=== PATIENT | female | born 1955 | race Caucasian/White ===

== ENCOUNTER 2017-04-06 06:21 | Day surgery (SDC) | payer BC ==
[~2017-04-06 06:21] MED LIST: ACETAMINOPHEN 1,000 MG/100 ML BTL IV ONE
[2017-04-06 06:48] LABS: BASO % 0.9 % (0-6); EOS % 4.3 % (0-6); GRAN % 44.4 % (47-80); HEMOGLOBIN 13.8 gm/dl (11.6-16.0); LYMPH % 36.2 % (16-45); MEAN CELL VOLUME 89.7 fl (81-97); MEAN CORPUSCULAR HEMOGLOBIN 30.2 pg (27-33); MEAN CORPUSCULAR HGB CONC 33.7 g/dl (32-36); MONO % 14.2 % (0-9); PLATELET COUNT 305 K/uL (130-400); RED BLOOD COUNT 4.57 M/uL (3.80-5.40); RED CELL DISTRIBUTION WIDTH 12.9 % (11.5-14.5); WHITE BLOOD COUNT W/O DIFF 5.6 K/uL (4.2-12.2)
[2017-04-06] MEDS ORDERED: BUPIVACAINE 0.25% W/EPI MPF 30ML VIAL IVP ONE (14:24)
[2017-04-06] MEDS ORDERED: PROPOFOL 10 MG/ML VIAL IV ONE (14:28)
[2017-04-06] MEDS ORDERED: LIDOCAINE 2% MDV (20MG/ML) 20ML VIAL IV ONE (14:28)
[2017-04-06] MEDS ORDERED: ALFENTANIL HCL 500 MCG/1ML, 2ML AMP IV ONE (14:28)
[2017-04-06] MEDS ORDERED: HYDROMORPHONE HCL 2 MG/ML VIAL IV ONE (14:28)
[2017-04-06] MEDS ORDERED: KETOROLAC 30 MG/ML VIAL IVP ONE (14:28)
--- NOTE | 2017-04-11 14:10 | Operative Note ---
DATE OF SURGERY: 04/06/2017 Surgeon: Lazarus Ly DO PREOPERATIVE DIAGNOSES: 1. Torn medial meniscus of the right knee. 2. Chondromalacia of the right knee. POSTOPERATIVE DIAGNOSES: 1. Chondromalacia of the medial femoral condyle, lateral tibial plateau, and patella of right knee. 2. Meniscal cyst of medial meniscus, right knee. OPERATION: 1. Arthroscopic chondroplasty of medial femoral condyle, lateral tibial plateau, and patella or right knee. 2. Arthroscopic synovectomy and removal of medial meniscal cyst, right knee. DESCRIPTION OF PROCEDURE: This 61-year-old female was taken to the operating room, placed in the supine position on the operating room table. A general anesthetic was administered and the right lower extremity was elevated. It was exsanguinated and the tourniquet inflated to 300 mmHg. The arthroscopic knee ling applied. It was prepped with Hibiclens and draped in the usual sterile fashion. An inferior lateral portal was established for the 4 mm arthroscope. Initial evaluation of the joint demonstrated normal appearance of the suprapatellar pouch but severe grade 3 chondromalacia of the entire articular surface of the patella was present with loose fragments of articular cartilage being identified. Through an inferomedial portion, chondroplasty was performed to stabilize the articular cartilage there. The trochlea, however, appeared to be normal. The medial and lateral gutters were examined and found to be normal. The medial compartment was entered and an area of grade 2 chondromalacia on the lateral edge of the medial femoral condyle, approximately 50% of the articular surface, demonstrated grade 2 changes. The lesion was approximately 2-3 cm in greatest dimension. The articular surface of the tibia appeared to be relatively spared at that point. Posteriorly we could visualize a meniscal cyst which was about 0.5 to 0.75 cm in diameter, and this cyst was probed and it was overlying the root of the medial meniscus. We debrided the cyst with a rotating shaver to remove it and probed the root of the meniscus and did not find any evidence of a tear there. We probed the remaining portion of the posterior horn and body of the medial meniscus and the anterior horn did not reveal any evidence of any damage to the medial meniscus. Chondroplasty of the medial femoral condyle was performed. The intracondylar notch was examined and found to be normal. The lateral compartment was entered and advanced grade 3 changes of the lateral tibial plateau were present with very severe articular cartilage loss which was a lesion which was approximately 1.5 to 2 cm wide but mostly ran anterior to posterior. This was a grade 3 lesion with loose flaps of articular cartilage being present there and chondroplasty was performed to stabilize the articular cartilage. Some very superficial fraying of the lateral meniscus was present and we debrided that but we did not really perform a meniscectomy. The lateral femoral condyle demonstrated essentially normal articular cartilage. The joint was then copiously irrigated and suctioned. The lateral meniscus otherwise did not appear to be normal. After copiously irrigating and suctioning the joint and removing all debris, the joint was suctioned. The instruments were removed and the puncture sites infiltrated with 0.25% Marcaine with epinephrine. Sterile dressings applied. The patient taken to the recovery room in satisfactory condition. GROSS PATHOLOGY: This patient had severe grade 3 chondromalacia of the lateral tibial plateau and the patella and chondroplasty of both of these areas was performed to stabilize the remaining articular cartilage. There was also grade 2 chondromalacia of the medial femoral condyle which was also debrided to stable articular cartilage. Meniscal cyst was excised with the rotating shaver as well. SUSIE
== END 2017-04-06 09:00 | disposition home or self-care (01) ==
LOC: SUR 06:21
PROVIDERS: ATTEND Orthopaedic Surgery
DX: M22.41 Chondromalacia patellae, right knee (principal); M23.003 Cystic meniscus, unspecified medial meniscus, right knee
CPT/HCPCS: 29875; 01400; 85025; 93005; 93010; J1885; J1170

== ENCOUNTER 2018-09-04 11:19 | Emergency (ER) | payer BC ==
[2018-09-04] MEDS ORDERED: ASPIRIN 81 MG CHEWABLE TABLET PO ONE (11:39)
--- NOTE | 2018-09-04 11:45 | Emergency Department Record ---
History of Present Illness - General Chief Complaint: Chest Pain Stated Complaint: LEFT ARM PAIN Time Seen by Provider: 09/04/18 11:23 Source: Patient Mode of Arrival: Ambulatory Limitations: No limitations - History of Present Illness Initial Comments: Pt from Dr. Aquino's office with complaint of left arm discomfort for 2 days. The pain is constant in the tricep area without radiation. Pt also notes some mid chest pressure with breathing. No cough, fever, nausea, diaphoresis. The chest discomfort comes and goes and is not associated with activity. No hx of HTn, DM,tobacco use, family hx of cardiac disease. Pt on meds for elevated cholesterol. No hx of angina or [place]. No recent increase in use of arm or trauma. Onset/Timin -: Days(s) Onset: Other Pain Location: Substernal Severity: Mild Severity scale (1-10): 3 Quality: Aching, Tightness Consistency: Intermittent Improves With: Nothing Worsens With: Nothing Treatments Prior to Arrival: None - Related Data Home Medications Medication Instructions Recorded Confirmed Last Taken Ezetimibe 10 mg PO DAILY 09/04/18 09/04/18 09/04/18 Allergies Allergy/AdvReac Type Severity Reaction Status Date / Time celecoxib [From Celebrex] Allergy Intermediate RASH Verified 03/31/17 09:42 hydrocodone bitartrate Allergy Intermediate NAUSEA AND Verified 03/31/17 09:42 [From Vicodin] VOMITING steri strips AdvReac Intermediate ITCHING Uncoded 03/31/17 09:42 Travel Screening - Travel/Exposure Within Last 30 Days Have you traveled within the last 30 days?: No - Travel/Exposure Within Last Year Have you traveled outside the [place] in the last year?: No - Additonal Travel Details Have you been exposed to anyone with a communicable illness?: No - Travel Symptoms Symptom Screening: None Review of Systems Constitutional: Denies: Chills, Fever, Night sweats, Weakness Eyes: Denies: Eye discharge, Photophobia ENT: Denies: Congestion, Ear pain Respiratory: Denies: Cough, Dyspnea Cardiovascular: Reports: As per HPI. Denies: Arrhythmia, Syncope Endocrine: Denies: Fatigue, Polydipsia, Polyuria Gastrointestinal: Denies: Abdominal pain, Diarrhea, Nausea, Vomiting Musculoskeletal: Denies: Back pain, Joint swelling Skin: Denies: Bruising, Rash Neurological: Denies: Abnormal gait, Headache, Tingling, Weakness Psychiatric: Denies: Anxiety Hematological/Lymphatic: Denies: Anemia, Blood Clots Past Medical History - SOCIAL HISTORY Smoking Status: Never smoker Alcohol Use: None Drug Use: None - RESPIRATORY Hx Respiratory Disorders: Yes Hx Bronchitis: Yes (once -2 yrs ago) Hx Pneumonia: Yes (double as baby) - CARDIOVASCULAR Hx Cardio Disorders: Yes Hx Edema: Yes (a little in rt ankle) - NEURO Hx Neuro Disorders: No - GI Hx GI Disorders: No - Hx Genitourinary Disorders: No - ENDOCRINE Hx Endocrine Disorders: No - MUSCULOSKELETAL Hx Musculoskeletal Disorders: Yes Hx Arthritis: Yes (joints) Hx Osteoporosis: Yes (beginning of-on calcium w vit D) - PSYCH Hx Psych Problems: No - HEMATOLOGY/ONCOLOGY Hx Hematology/Oncology Disorders: Yes Hx Anemia: Yes (before hysterectomy only) Hx Blood Transfusions: Yes Hx Blood Transfusion Reaction: No Family Medical History Any Significant Family History?: Yes Family Hx Comment (NOT TO BE USED IN PLACE OF ITEMS BELOW): Dad PUD Hx Cancer: Brother/Sister Hx Diabetes: Mother, Brother/Sister Hx HTN: Brother/Sister Physical Exam - General General Appearance: Alert, Oriented x3, Cooperative, No acute distress - Head Head exam: Normal inspection - Eye Eye exam: Normal appearance, PERRL - ENT ENT exam: Normal exam, Mucous membranes moist, Normal external ear exam, Normal orophraynx, TM's normal bilaterally - Neck Neck exam: Normal inspection, Full ROM. negative: Tenderness - Respiratory Respiratory exam: Normal lung sounds bilaterally. negative: Respiratory distress - Cardiovascular Cardiovascular Exam: Regular rate, Normal rhythm, Normal heart sounds, Systolic murmur. negative: Tachycardia Peripheral Pulses: 2+: Radial (R), Radial (L), Dorsalis Pedis (R), Dorsalis Pedis (L) - GI/Abdominal GI/Abdominal exam: Soft, Normal bowel sounds. negative: Guarding, Tenderness - Extremities Extremities exam: Normal inspection, Full ROM, Normal capillary refill. negative: Tenderness - Back Back exam: Reports: Normal inspection, Full ROM. Denies: Muscle spasm, Rash noted, Tenderness - Neurological Neurological exam: Alert, Normal gait, Oriented X3 - Psychiatric Psychiatric exam: Normal affect, Normal mood - Skin Skin exam: Normal color. negative: Rash Course Vital Signs 09/04/18 11:25 Temperature 97.9 F Pulse Rate 97 H Respiratory 20 Rate Blood Pressure 157/94 Pulse Ox 97 - Reevaluation(s) Reevaluation #1: 09/04/18 11:47 Pt with atypical symptoms. EKG not acute. ASA given and plan for labs and serial Trops. in ED. Pt aware. Reevaluation #2: 09/04/18 15:46 3 hours interval EKG and Trop are unchanged and negative. Pt comfortable with home. Referral to Dr. Miranda for outpt stress testing. Dr. Aquino aware of plan and course. Procedures - EKG Initial Date: 09/04/18 Time: 11:46 EKG: Normal EKG - EKG Repeat Repeat #1 EKG Repeat: Normal EKG (84 BPM) Medical Decision Making - Management Options MDM Management: Additional Work-up Planned (e.g. ADM/Transfer/OP Study) - Data Complexity MDM Data: Labs Ordered and/or Reviewed, X-Ray Ordered and/or Reviewed, EKG Ordered and/or Reviewed, Independent Visualization of Image, Tracing, or Specimen - Lab Data Result diagrams: 09/04/18 11:45 09/04/18 11:45 - EKG Data -: EKG Interpreted by Me EKG: No Acute Changes - Radiology Data Radiology results: Image reviewed -: Radiology Exam Interpreted by Myself Disposition Disposition: Discharge Clinical Impression: Left upper arm pain, Chest pain, atypical Disposition: Home, Self-Care Condition: (2) Stable Instructions: Chest Pain (ED), Arm Pain (ED), Ice Pack Application (ED) Additional Instructions: Take advil over the counter for arm pain. Ice to arm as instructed. Call for appointment with Dr. Miranda Referrals: YOU MIRANDA M.D. [MEDICAL DOCTOR] - Forms: Patient Portal Access Time of Disposition: 15:51 Quality - Quality Measures Quality Measures: N/A - Blood Pressure Screening Does Patient Have Any of the Following: No Blood Pressure Classification: Hypertensive Reading Systolic Measurement: 157 Diastolic Measurement: 94 Screening for High Blood Pressure: < Pre-Hypertensive BP, F/U Documented > [ G8950] Pre-Hypertensive Follow-up Interventions: Follow-up with rescreen every year.
[2018-09-04 11:49] LABS: BASO % 0.5 % (0-6); EOS % 1.8 % (0-6); GRAN % 44.2 % (47-80); HEMATOCRIT 41.3 % (35.0-47.0); HEMOGLOBIN 13.7 gm/dl (11.6-16.0); LYMPH % 38.4 % (16-45); MEAN CELL VOLUME 89.8 fl (81-97); MEAN CORPUSCULAR HEMOGLOBIN 29.8 pg (27-33); MEAN CORPUSCULAR HGB CONC 33.2 g/dl (32-36); MEAN PLATELET VOLUME 9.8 fl (7.4-10.4); MONO % 15.1 % (0-9); PLATELET COUNT 310 K/uL (130-400); RED CELL DISTRIBUTION WIDTH 12.9 % (11.5-14.5); WHITE BLOOD COUNT W/O DIFF 5.6 K/uL (4.2-12.2)
[2018-09-04 12:01] LABS: BLOOD UREA NITROGEN 17 mg/dL (8-23); CREATININE 0.7 mg/dL (0.5-0.9); EST GLOMERULAR FILTRATION RATE > 60 mL/min
[2018-09-04 12:04] LABS: GLUCOSE,RANDOM 104 mg/dL (74-109)
--- NOTE | 2018-09-05 08:22 | RADIOLOGY REPORT ---
EXAM: CHEST, TWO VIEWS HISTORY: RIGHT ARM PAIN, CHEST PAIN. TECHNIQUE: Two views of the chest were obtained. Comparison: Two view chest radiograph 08/22/08. FINDINGS: The cardiac silhouette is within normal size limits. No pulmonary vascular congestion. No focal pulmonary consolidation, pleural effusion, or pneumothorax. Left suprahilar nodular opacity is stable since 2008. IMPRESSION: NO ACUTE LUNG FINDINGS. JOB NUMBER: [id number] [facility]
== END 2018-09-04 16:05 | disposition home or self-care (01) ==
LOC: ER 11:19
DX: R07.89 Other chest pain (principal); M79.622 Pain in left upper arm; E78.00 Pure hypercholesterolemia, unspecified
CPT/HCPCS: 71046; 80048; 84484; 85025; 93005; 93010; 99284

== ENCOUNTER 2019-05-05 22:28 | Emergency (ER) | payer BC ==
[2019-05-06] MEDS ORDERED: METHYLPREDNISOLONE PF 125MG/VIAL IM ONE (00:23)
--- NOTE | 2019-05-06 00:59 | Emergency Department Record ---
History of Present Illness - General Chief complaint: Bite Insect/other Stated complaint: LT FOOT FOOT SWELLING BEE STING Time Seen by Provider: 05/06/19 00:19 Source: Patient Mode of Arrival: Ambulatory Limitations: No limitations - History of Present Illness Initial comments: bee sting on foot. 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 she took benadryl tonight.. she has pain MD complaint: Insect bite/sting Onset/Timin -: Hour(s) Hx Tetanus Toxoid Vaccination: Yes Year of Tetanus Vaccination: 2008 Location: L foot Severity scale (1-10): 5 Quality: Sharp, Stabbing Consistency: Constant Improves with: None Worsens with: Palpation, Movement Context: None Associated symptoms: Denies other symptoms Treatments Prior to Arrival: Benadryl Treatment Prior to Arrival Comment:: two cap - Related Data Allergies Allergy/AdvReac Type Severity Reaction Status Date / Time celecoxib [From Celebrex] Allergy Intermediate RASH Verified 03/31/17 09:42 hydrocodone bitartrate Allergy Intermediate NAUSEA AND Verified 03/31/17 09:42 [From Vicodin] VOMITING steri strips AdvReac Intermediate ITCHING Uncoded 03/31/17 09:42 Travel Screening - Travel/Exposure Within Last 30 Days Have you traveled within the last 30 days?: No - Travel/Exposure Within Last Year Have you traveled outside the [place] in the last year?: No - Additonal Travel Details Have you been exposed to anyone with a communicable illness?: No - Travel Symptoms Symptom Screening: None Review of Systems Reviewed: No additional complaints except as noted below Constitutional: Reports: As per HPI. Denies: Chills, Fever, Malaise, Night sweats, Weakness, Weight change Eyes: Reports: As per HPI. Denies: Eye discharge, Eye pain, Photophobia, Vision change ENT: Reports: As per HPI. Denies: Congestion, Dental pain, Ear pain, Epistaxis, Hearing loss, Throat pain Respiratory: Reports: As per HPI. Denies: Cough, Dyspnea, Hemoptysis, Stridor, Wheezes Cardiovascular: Reports: As per HPI. Denies: Arrhythmia, Chest pain, Dyspnea on exertion, Edema, Murmurs, Orthopnea, Palpitations, Paroxysmal nocturnal dyspnea, Rheumatic Fever, Syncope Endocrine: Reports: As per HPI. Denies: Fatigue, Heat or cold intolerance, Polydipsia, Polyuria Gastrointestinal: Reports: As per HPI. Denies: Abdominal pain, Constipation, Diarrhea, Hematemesis, Hematochezia, Melena, Nausea, Vomiting Genitourinary: Reports: As per HPI. Denies: Abnormal menses, Discharge, Dys pareunia, Dysuria, Frequency, Hematuria, Incontinence, Retention, Urgency Musculoskeletal: Reports: As per HPI. Denies: Arthralgia, Back pain, Gout, Joint swelling, Myalgia, Neck pain Skin: Reports: As per HPI. Denies: Bruising, Change in color, Change in hair/nails, Lesions, Pruritus, Rash Neurological: Reports: As per HPI. Denies: Abnormal gait, Confusion, Headache, Numbness, Paresthesias, Seizure, Tingling, Tremors, Vertigo, Weakness Psychiatric: Reports: As per HPI. Denies: Anxiety, Auditory hallucinations, Depression, Homicidal thoughts, Suicidal thoughts, Visual hallucinations Hematological/Lymphatic: Reports: As per HPI. Denies: Anemia, Blood Clots, Easy bleeding, Easy bruising, Swollen glands Past Medical History - SOCIAL HISTORY Smoking Status: Never smoker Alcohol Use: None Drug Use: None - RESPIRATORY Hx Respiratory Disorders: Yes Hx Bronchitis: Yes (once -2 yrs ago) Hx Pneumonia: Yes (double as baby) - CARDIOVASCULAR Hx Cardio Disorders: Yes Hx Edema: Yes (a little in rt ankle) - NEURO Hx Neuro Disorders: No - GI Hx GI Disorders: No - Hx Genitourinary Disorders: No - ENDOCRINE Hx Endocrine Disorders: No - MUSCULOSKELETAL Hx Musculoskeletal Disorders: Yes Hx Arthritis: Yes (joints) Hx Osteoporosis: Yes (beginning of-on calcium w vit D) - PSYCH Hx Psych Problems: No - HEMATOLOGY/ONCOLOGY Hx Hematology/Oncology Disorders: Yes Hx Anemia: Yes (before hysterectomy only) Hx Blood Transfusions: Yes Hx Blood Transfusion Reaction: No Family Medical History Any Significant Family History?: Yes Family Hx Comment (NOT TO BE USED IN PLACE OF ITEMS BELOW): Dad PUD Hx Cancer: Brother/Sister Hx Diabetes: Mother, Brother/Sister Hx HTN: Brother/Sister Physical Exam - General General Appearance: Alert, Oriented x3, Cooperative, No acute distress - Head Head exam: Normal inspection - Eye Eye exam: Normal appearance, PERRL, EOMI Pupils: Normal accommodation - ENT ENT exam: Normal exam, Mucous membranes moist, Normal external ear exam, Normal orophraynx Ear exam: Normal external inspection. negative: External canal tenderness Nasal Exam: Normal inspection. negative: Discharge, Sinus tenderness Mouth exam: Normal external inspection, Tongue normal Teeth exam: Normal inspection. negative: Dental caries Throat exam: Normal inspection. negative: Tonsillar erythema, Tonsillar exudate - Neck Neck exam: Normal inspection, Full ROM. negative: Tenderness - Respiratory Respiratory exam: Normal lung sounds bilaterally. negative: Respiratory distress - Cardiovascular Cardiovascular Exam: Regular rate, Normal rhythm, Normal heart sounds - GI/Abdominal GI/Abdominal exam: Soft, Normal bowel sounds. negative: Tenderness - Rectal Rectal exam: Deferred - exam: Deferred - Extremities Extremities exam: Normal inspection, Full ROM, Normal capillary refill, Tenderness Image of Feet: 1 - tender, swelling, erythema - Back Back exam: Reports: Normal inspection, Full ROM. Denies: Muscle spasm, Rash noted, Tenderness - Neurological Neurological exam: Alert, CN II-XII intact, Normal gait, Oriented X3 - Psychiatric Psychiatric exam: Normal affect, Normal mood - Skin Skin exam: Dry, Intact, Normal color, Warm Type of lesion: Bite/sting Course Vital Signs 05/05/19 23:30 Temperature 98.1 F Pulse Rate [ 85 Pulse Ox Probe] Respiratory 24 Rate Blood Pressure 142/97 [Left Arm] Pulse Ox 98 Disposition Quality - Quality Measures Quality Measures: N/A - Blood Pressure Screening Does Patient Have Any of the Following: No Blood Pressure Classification: Hypertensive Reading Systolic Measurement: 142 Diastolic Measurement: 97 Screening for High Blood Pressure: < First Hypertensive BP, F/U Documented > [G8950] First Hypertensive Follow-up Interventions: Follow-up with rescreen GT 1 day and LT 4 weeks.
--- NOTE | 2019-05-06 01:08 | Emergency Department Record ---
History of Present Illness - General Chief complaint: Bite Insect/other Stated complaint: LT FOOT FOOT SWELLING BEE STING Time Seen by Provider: 05/06/19 00:19 Source: Patient Mode of Arrival: Ambulatory Limitations: No limitations - History of Present Illness MD complaint: Insect bite/sting Onset/Timin -: Hour(s) Hx Tetanus Toxoid Vaccination: Yes Year of Tetanus Vaccination: 2008 Location: L foot Severity scale (1-10): 5 Quality: Sharp, Stabbing Consistency: Constant Improves with: None Worsens with: Palpation, Movement Context: None Associated symptoms: Denies other symptoms Treatments Prior to Arrival: Benadryl Treatment Prior to Arrival Comment:: two cap - Related Data Allergies Allergy/AdvReac Type Severity Reaction Status Date / Time celecoxib [From Celebrex] Allergy Intermediate RASH Verified 03/31/17 09:42 hydrocodone bitartrate Allergy Intermediate NAUSEA AND Verified 03/31/17 09:42 [From Vicodin] VOMITING steri strips AdvReac Intermediate ITCHING Uncoded 03/31/17 09:42 Travel Screening - Travel/Exposure Within Last 30 Days Have you traveled within the last 30 days?: No - Travel/Exposure Within Last Year Have you traveled outside the [place] in the last year?: No - Additonal Travel Details Have you been exposed to anyone with a communicable illness?: No - Travel Symptoms Symptom Screening: None Review of Systems Constitutional: Reports: As per HPI. Denies: Chills, Fever, Malaise, Night sweats, Weakness, Weight change Eyes: Reports: As per HPI. Denies: Eye discharge, Eye pain, Photophobia, Vision change ENT: Reports: As per HPI. Denies: Congestion, Dental pain, Ear pain, Epistaxis, Hearing loss, Throat pain Respiratory: Reports: As per HPI. Denies: Cough, Dyspnea, Hemoptysis, Stridor, Wheezes Cardiovascular: Reports: As per HPI. Denies: Arrhythmia, Chest pain, Dyspnea on exertion, Edema, Murmurs, Orthopnea, Palpitations, Paroxysmal nocturnal dyspnea, Rheumatic Fever, Syncope Endocrine: Reports: As per HPI. Denies: Fatigue, Heat or cold intolerance, Jacek ydipsia, Polyuria Gastrointestinal: Reports: As per HPI. Denies: Abdominal pain, Constipation, Diarrhea, Hematemesis, Hematochezia, Melena, Nausea, Vomiting Genitourinary: Reports: As per HPI. Denies: Abnormal menses, Discharge, Dyspareunia, Dysuria, Frequency, Hematuria, Incontinence, Retention, Urgency Musculoskeletal: Reports: As per HPI. Denies: Arthralgia, Back pain, Gout, Joint swelling, Myalgia, Neck pain Skin: Reports: As per HPI. Denies: Bruising, Change in color, Change in hair/nails, Lesions, Pruritus, Rash Neurological: Reports: As per HPI. Denies: Abnormal gait, Confusion, Headache, Numbness, Paresthesias, Seizure, Tingling, Tremors, Vertigo, Weakness Psychiatric: Reports: As per HPI. Denies: Anxiety, Auditory hallucinations, Depression, Homicidal thoughts, Suicidal thoughts, Visual hallucinations Hematological/Lymphatic: Reports: As per HPI. Denies: Anemia, Blood Clots, Easy bleeding, Easy bruising, Swollen glands Past Medical History - SOCIAL HISTORY Smoking Status: Never smoker Alcohol Use: None Drug Use: None - RESPIRATORY Hx Respiratory Disorders: Yes Hx Bronchitis: Yes (once -2 yrs ago) Hx Pneumonia: Yes (double as baby) - CARDIOVASCULAR Hx Cardio Disorders: Yes Hx Edema: Yes (a little in rt ankle) - NEURO Hx Neuro Disorders: No - GI Hx GI Disorders: No - Hx Genitourinary Disorders: No - ENDOCRINE Hx Endocrine Disorders: No - MUSCULOSKELETAL Hx Musculoskeletal Disorders: Yes Hx Arthritis: Yes (joints) Hx Osteoporosis: Yes (beginning of-on calcium w vit D) - PSYCH Hx Psych Problems: No - HEMATOLOGY/ONCOLOGY Hx Hematology/Oncology Disorders: Yes Hx Anemia: Yes (before hysterectomy only) Hx Blood Transfusions: Yes Hx Blood Transfusion Reaction: No Family Medical History Any Significant Family History?: Yes Family Hx Comment (NOT TO BE USED IN PLACE OF ITEMS BELOW): Dad PUD Hx Cancer: Brother/Sister Hx Diabetes: Mother, Brother/Sister Hx HTN: Brother/Sister Physical Exam - General General Appearance: Alert, Oriented x3, Cooperative, No acute distress Limitations: No limitations - Head Head exam: Normal inspection - Eye Eye exam: Normal appearance, PERRL, EOMI Pupils: Normal accommodation - ENT ENT exam: Normal exam, Mucous membranes moist, Normal external ear exam, Normal orophraynx, TM's normal bilaterally Ear exam: Normal external inspection. negative: External canal tenderness Nasal Exam: Normal inspection. negative: Discharge, Sinus tenderness Mouth exam: Normal external inspection, Tongue normal Teeth exam: Normal inspection. negative: Dental caries Throat exam: Normal inspection. negative: Tonsillar erythema, Tonsillar exudate - Neck Neck exam: Normal inspection, Full ROM. negative: Tenderness - Respiratory Respiratory exam: Normal lung sounds bilaterally. negative: Respiratory distress - Cardiovascular Cardiovascular Exam: Regular rate, Normal rhythm, Normal heart sounds - GI/Abdominal GI/Abdominal exam: Soft, Normal bowel sounds. negative: Tenderness - Rectal Rectal exam: Deferred - exam: Deferred - Extremities Extremities exam: Full ROM, Normal capillary refill, Tenderness Image of Feet: 1 - tender, erythema , swelling mild - Back Back exam: Reports: Normal inspection, Full ROM. Denies: Muscle spasm, Rash noted, Tenderness - Neurological Neurological exam: Alert, Normal gait, Oriented X3, Reflexes normal - Psychiatric Psychiatric exam: Normal affect, Normal mood - Skin Skin exam: Dry, Intact, Normal color, Warm Course Vital Signs 05/05/19 23:30 Temperature 98.1 F Pulse Rate [ 85 Pulse Ox Probe] Respiratory 24 Rate Blood Pressure 142/97 [Left Arm] Pulse Ox 98 Disposition Disposition: Discharge Clinical Impression: Bee sting reaction Qualifiers: Encounter type: initial encounter Injury intent: accidental or unintentional Qualified Code(s): T63.441A - Toxic effect of venom of bees, accidental (unintentional), initial encounter Disposition: Home, Self-Care Condition: (1) Good Instructions: Insect Bite or Sting (ED) Additional Instructions: follow up with family doctor. return sooner if worse. take benadryl as needed Forms: Patient Portal Access Quality - Quality Measures Quality Measures: N/A - Blood Pressure Screening Does Patient Have Any of the Following: No Blood Pressure Classification: Hypertensive Reading Systolic Measurement: 142 Diastolic Measurement: 97 Screening for High Blood Pressure: < First Hypertensive BP, F/U Documented > [G8950] First Hypertensive Follow-up Interventions: Follow-up with rescreen GT 1 day and LT 4 weeks.
== END 2019-05-06 01:16 | disposition home or self-care (01) ==
LOC: ER 22:28
DX: T63.441A Toxic effect of venom of bees, accidental (unintentional), initial encounter (principal); R22.42 Localized swelling, mass and lump, left lower limb; Y92.009 Unspecified place in unspecified non-institutional (private) residence as the place of occurrence of the external cause
CPT/HCPCS: 96372; 99284; J2930